=== PATIENT | female | born 2000 | race Two or more races ===

== ENCOUNTER 2022-08-05 09:53 | Emergency (ER) | payer OTHER ==
[2022-08-05 10:11] VITALS: BP 110/65; PULSE 84; RESP 16; TEMP 97.8; BMI 33.6
[2022-08-05] MEDS ORDERED: SODIUM CHLORIDE 0.9% 500 ML INFUS.BAG IV ONE (10:18)
[2022-08-05 11:19] LABS: BASO % 0.5 % (0-2.0); EOS % 1.8 % (0-4.5); HEMATOCRIT 34.7 % (32.4-45.2); LYMPH % 19.6 % (8-40); MCHC 34.7 g/dl (32.0-36.0); MEAN CELL VOLUME 89.4 fl (80-96); MEAN PLT VOLUME 9.7 fl (7.5-11.1); MONO % 5.5 % (3.8-10.2); NEUT % 72.6 % (42.8-82.8); PLATELET COUNT 272 10^3/uL (134-434); RBC 3.88 M/mm3 (3.60-5.2); RDW 13.2 % (11.6-15.6); WHITE BLOOD COUNT 9.6 K/mm3 (4.0-10.0)
[2022-08-05 11:32] LABS: URINE APPEARANCE CLEAR; URINE BILIRUBIN NEGATIVE (NEGATIVE); URINE COLOR YELLOW; URINE GLUCOSE (UA) NEGATIVE (NEGATIVE); URINE KETONE NEGATIVE (NEGATIVE); URINE LEUK ESTERASE NEGATIVE (NEGATIVE); URINE NITRITE NEGATIVE (NEGATIVE); URINE PROTEIN NEGATIVE (NEGATIVE); URINE UROBILINOGEN 0.2 mg/dL (0.2-1.0)
[2022-08-05 11:38] LABS: HCG,QUALITATIVE URINE Positive
[2022-08-05 11:45] LABS: POTASSIUM 4.3 mmol/L (3.5-5.1)
[2022-08-05 11:47] LABS: BLOOD UREA NITROGEN 8.3 mg/dL (7-18); CALCIUM 9.4 mg/dL (8.5-10.1)
[2022-08-05 11:48] LABS: ALBUMIN 3.3 g/dl (3.4-5.0)
[2022-08-05 11:50] LABS: CREATININE 0.6 mg/dL (0.55-1.3)
[2022-08-05 11:52] LABS: TOT PROT 7.2 g/dl (6.4-8.2)
[2022-08-05 11:54] LABS: BILIRUBIN,TOTAL 0.8 mg/dL (0.2-1)
== END 2022-08-05 15:39 | disposition home or self-care (01) ==
LOC: JER 09:53
DX: O20.9 Hemorrhage in early pregnancy, unspecified (principal); O26.891 Other specified pregnancy related conditions, first trimester; R10.30 Lower abdominal pain, unspecified; Z3A.01 Less than 8 weeks gestation of pregnancy
CPT/HCPCS: 36415; 76817-TC; 80053; 81003; 84702; 84703; 85025; 86850; 86900; 86901; 87086; 99284-25